=== PATIENT | female | born 1945 | race Caucasian/White ===

== ENCOUNTER 2023-11-17 20:04 | Emergency (ER) | payer OTHER, MEDICARE, SELFPAY ==
--- NOTE | ~2023-11-17 | US_ITS ---
EXAMINATION: US VENOUS ULTRASOUND WITH DOPPLER LOWER EXTREMITY, LEFT CLINICAL INFORMATION: Edema. COMPARISON: None available. TECHNIQUE: Ultrasound of the deep veins is performed from the hip to the calf with compression sonography and color and pulse Doppler assessment. Spectral analysis with color-flow imaging is performed. FINDINGS: There is normal venous compression and respiratory variation and augmented flow. The visualized common femoral vein, superficial femoral vein, profunda femoral vein, popliteal vein, and the trifurcation region shows no evidence of deep venous thrombosis. There is no significant popliteal fossa cyst. If the patient's symptoms persist, followup ultrasound in 5 days 7 days might be of value to exclude proximal propagation from a non-visualized calf vein. US/US venous duplex LE LT IMPRESSION: No DVT demonstrated in the left lower extremity.
[2023-11-17 20:13] VITALS: BP 148/78; PULSE 79; O2SAT 97
[2023-11-17 20:27] VITALS: BMI 25.9
--- NOTE | 2023-11-17 20:37 | PHA.MEDREC ---
Pharmacy Consult ? Medication Reconciliation Pharmacy has completed the medication reconciliation. Patient came with med list from [facility].
--- NOTE | 2023-11-17 21:20 | ED_ITS ---
HPI - General Adult General Chief complaint: Extremity Injury, Lower Stated complaint: R LEG PAIN X2 DAYS,FROM [facility] PER EMS Time Seen by Provider: 11/17/23 21:18 Source: patient Mode of arrival: ambulatory Limitations: no limitations History of Present Illness HPI narrative: Patient with schizophrenia and dementia comes here from psych facility for left leg swelling for last few days patient complaining of some pain in the morning at this time patient denies any complaints no history of DVT in the past no apparent shortness of breath Related Data Home Medications Medication Instructions Recorded Confirmed cyanocobalamin (vitamin B-12) 1,000 mcg PO DAILY 11/17/23 11/17/23 1,000 mcg tablet divalproex 125 mg tablet,delayed 250 mg PO DAILY 11/17/23 11/17/23 release divalproex 125 mg tablet,delayed 500 mg PO BEDTIME 11/17/23 11/17/23 release docusate sodium 100 mg tablet 100 mg PO DAILY 11/17/23 11/17/23 quetiapine 25 mg tablet 12.5 mg PO BID PRN Agitation 11/17/23 11/17/23 risperidone 0.5 mg tablet 0.5 mg PO BEDTIME 11/17/23 11/17/23 risperidone 0.5 mg tablet 0.5 mg PO DAILY 11/17/23 11/17/23 (Risperdal) risperidone 0.5 mg tablet 0.5 mg PO TID PRN Agitation 11/17/23 11/17/23 (Risperdal) rivastigmine tartrate 1.5 mg 1.5 mg PO BID 11/17/23 11/17/23 capsule sertraline 50 mg tablet 50 mg PO DAILY 11/17/23 11/17/23 trazodone 50 mg tablet 50 mg PO BEDTIME PRN Insomnia 11/17/23 11/17/23 Allergies Allergy/AdvReac Type Severity Reaction Status Date / Time No Known Allergies Allergy Verified 11/17/23 21:32 Review of Systems 2 Review of Systems: Yes all other systems are reviewed and are negative PMFSH Social History Social History Advance Directives: No Advance Directives Information Provided: No Physical Exam ED Vital Signs: Vital Signs - 24 hr 11/17/23 21:30 Pulse Rate 71 Respiratory Rate 18 Blood Pressure 141/79 H Pulse Oximetry 98 Oxygen Delivery Method Room Air BMI result Body Mass Index 25.9 Appearance: Alert. Oriented X3. No acute distress. Eyes: PERRLA, ENT: Pharynx normal. Oral Mucosa moist Neck: Normal inspection. Neck supple. CVS: Normal heart rate and rhythm. Pulses normal. Respiratory: No respiratory distress. Equal air entry bilateral, Abdomen: Soft and nontender. Bowel sounds are present, Skin: Skin warm and dry. Normal skin color. Normal skin turgor. Extremities: 2+ edema left lower extremity. No significant calf tenderness Neuro: Alert and awake with memory loss Medical Decision Making Medical Decision Making [facility] Narrative: Patient with nontender mild left leg edema venous Doppler negative for DVT labs are stable no shortness of breath patient advised to keep left leg elevated likely dependent edema patient's BNP 160 Differential Diagnosis Differential Diagnoses: The differential diagnosis associated with the presentation includes DVT/CHF/dependent edema Lab Data [facility] Lab Attestation statement: I reviewed the patient's lab results. 11/17/23 22:13 11/17/23 22:13 Labs: Lab Results 11/17/23 Range/Units 22:13 WBC 6.6 (4.8-10.8) X10*3/uL RBC 4.03 L (4.20-5.50) X10*6/uL Hgb 13.3 (12.0-16.0) g/dl Hct 39.4 (37.0-47.0) % MCV 97.8 (80.0-98.0) fL MCH 33.0 (27.0-33.0) pg MCHC 33.8 (31.0-35.0) g/dl RDW 12.4 (11.0-16.0) % Plt Count 190 (160-400) X10*3/uL MPV 12.2 (9.4-12.3) fL Immature Gran % (Auto) 0.3 (0.0-0.4) % Neut % (Auto) 63.0 (45-73) % Lymph % (Auto) 25.8 (20-40) % [place] % (Auto) 9.2 (2-11) % Eos % (Auto) 1.1 (0-4) % Baso % (Auto) 0.6 (0-2) % Lymph # (Auto) 1.7 (1.2-4.9) X10*3/uL [place] # (Auto) 0.6 (0.1-1.2) X10*3/uL Eos # (Auto) 0.1 (0.0-0.4) X10*3/uL Baso # (Auto) 0.0 (0.0-0.2) X10*3/uL Abs Immat Gran (auto) 0.02 (0.00-0.03) X10*3/uL Absolute Neuts (auto) 4.2 (2.0-8.3) x10*3/uL Absolute Nucleated RBC 0.000 (0.0-0.012) X10*3/uL Nucleated RBC % (auto) 0.0 (0.0-0.2) /100WBC PT 11.9 (11.1-13.3) SEC INR 1.0 (0.9-1.1) Sodium 140 (135-145) mmol/L Potassium 4.0 (3.3-5.1) mmol/L Chloride 105 (96-108) mmol/L Carbon Dioxide 27 (22-29) mmol/L Anion Gap 12 (12-20) BUN 22 H (9-16) mg/dL Creatinine 0.73 (0.5-1.4) mg/dL Estim Creat Clear Calc 63.6 Estimated GFR > 60 Random Glucose 91 (60-115) mg/dL Calcium 9.5 (8.4-10.2) mg/dL Total Bilirubin 0.3 (0.0-1.0) mg/dL AST 22 (5-31) U/L ALT 20 (0-31) U/L Alkaline Phosphatase 93 (39-117) U/L B-Natriuretic Peptide 160 H (<100) pg/mL Total Protein 6.9 (6.5-8.0) g/dL Albumin 4.1 (3.5-5.0) g/dL Independent Interpretation I performed an independent interpretation of an: Ultrasound Radiology Impression Discussion of test interpretation with radiology: I have reviewed the radiologist's reading. Radiologist Impression: [address] [address] Ultrasound Report Signed Patient: Gretchen Ureña MR#: [id number] : 1945 Acct:[id number] Age/Sex: 78 / F ADM Date: 11/17/23 Loc: HO.ED Attending Dr: Ordering Physician: Manjeet Tavarez MD Date of Service: 11/17/23 Procedure(s): US venous duplex LE LT Accession Number(s): [id number] cc: Manjeet Tavarez MD~ EXAMINATION: US VENOUS ULTRASOUND WITH DOPPLER LOWER EXTREMITY, LEFT CLINICAL INFORMATION: Edema. COMPARISON: None available. TECHNIQUE: Ultrasound of the deep veins is performed from the hip to the calf with compression sonography and color and pulse Doppler assessment. Spectral analysis with color-flow imaging is performed. FINDINGS: There is normal venous compression and respiratory variation and augmented flow. The visualized common femoral vein, superficial femoral vein, profunda femoral vein, popliteal vein, and the trifurcation region shows no evidence of deep venous thrombosis. There is no significant popliteal fossa cyst. If the patient's symptoms persist, followup ultrasound in 5 days 7 days might be of value to exclude proximal propagation from a non-visualized calf vein. US/US venous duplex LE LT IMPRESSION: No DVT demonstrated in the left lower extremity. Discharge Plan Discharge Clinical Impression: Leg edema, left Patient Disposition: Home, Self-Care Instructions: Leg Edema (ED) Additional Instructions: Venous Doppler negative for DVT Keep left leg elevated Follow with PCP Prescriptions: No Action quetiapine 25 mg tablet 12.5 mg PO BID PRN (Reason: Agitation) rivastigmine tartrate 1.5 mg Capsule 1.5 mg PO BID trazodone 50 mg Tablet 50 mg PO BEDTIME PRN (Reason: Insomnia) cyanocobalamin (vitamin B-12) 1,000 mcg Tablet 1,000 mcg PO DAILY divalproex 125 mg Tablet,Delayed Release (Dr/Ec) 250 mg PO DAILY divalproex 125 mg Tablet,Delayed Release (Dr/Ec) 500 mg PO BEDTIME sertraline 50 mg Tablet 50 mg PO DAILY docusate sodium 100 mg Tablet 100 mg PO DAILY risperidone [Risperdal] 0.5 mg Tablet 0.5 mg PO DAILY risperidone 0.5 mg Tablet 0.5 mg PO BEDTIME risperidone [Risperdal] 0.5 mg Tablet 0.5 mg PO TID PRN (Reason: Agitation)
[2023-11-17 21:30] VITALS: BP 141/79; PULSE 71; RESP 18; O2SAT 98
[2023-11-17 22:17] LABS: MANUAL DIFF FLAG NO
[2023-11-17 22:19] LABS: Basophils Percent Auto 0.6 % (0-2); Eosinophils Absolute Auto 0.1 X10*3/uL (0.0-0.4); Eosinophils Percent Auto 1.1 % (0-4); Hematocrit 39.4 % (37.0-47.0); Hemoglobin 13.3 g/dl (12.0-16.0); Imm Gran Abs Auto 0.02 X10*3/uL (0.00-0.03); Imm Gran Pct Auto 0.3 % (0.0-0.4); Lymphocytes Absolute Auto 1.7 X10*3/uL (1.2-4.9); Lymphocytes Percent Auto 25.8 % (20-40); Mean Corpuscular HGB Conc 33.8 g/dl (31.0-35.0); Mean Corpuscular Volume 97.8 fL (80.0-98.0); Mean Platelet Volume 12.2 fL (9.4-12.3); Monocytes Absolute Auto 0.6 X10*3/uL (0.1-1.2); Monocytes Percent Auto 9.2 % (2-11); Neutrophils Absolute Auto 4.2 x10*3/uL (2.0-8.3); Platelet Count 190 X10*3/uL (160-400); Red Blood Count 4.03 X10*6/uL (4.20-5.50); Red Cell Distribution Width 12.4 % (11.0-16.0); White Blood Count 6.6 X10*3/uL (4.8-10.8)
[2023-11-17 22:24] LABS: Prothrombin Time 11.9 SEC (11.1-13.3)
[2023-11-17 22:32] LABS: Alanine Aminotransferase 20 U/L (0-31); Albumin Level 4.1 g/dL (3.5-5.0); Alkaline Phosphatase 93 U/L (39-117); Anion Gap 12 (12-20); Aspartate Amino Transferase 22 U/L (5-31); Bilirubin Total 0.3 mg/dL (0.0-1.0); Blood Urea Nitrogen 22 mg/dL (9-16); Calcium 9.5 mg/dL (8.4-10.2); Carbon Dioxide 27 mmol/L (22-29); Chloride 105 mmol/L (96-108); Creatinine Clr Calc Pharmacy 63.6; Estimated Glomerular Filt Rate > 60; Glucose Random 91 mg/dL (60-115); Sodium 140 mmol/L (135-145); Total Protein 6.9 g/dL (6.5-8.0)
[2023-11-17 22:38] LABS: B Type Natriuretic Peptide 160 pg/mL (<100)
--- NOTE | 2023-11-17 23:25 | MHC.EDTECH ---
Call out to [facility] @[phone] to book transport back to [facility] ETA of 45 mins was given by dispatch
== END 2023-11-18 00:58 | disposition home or self-care (01) ==
PROVIDERS: Emergency Provider Internal Medicine
DX: R60.0 Localized edema (principal); M79.605 Pain in left leg
CPT/HCPCS: 36415; 80053; 83880; 85025; 85610; 93971; 99284